=== PATIENT | male | born 1950 | race Caucasian/White ===

== ENCOUNTER 2021-11-03 09:02 | Outpatient (CLI) | payer MEDICARE, SELFPAY ==
--- NOTE | ~2021-11-03 | CT_ITS ---
EXAMINATION: CT abdomen pelvis w con DATE: 11/03/2021 10:16 INDICATION: Left abdominal pain. Nausea and diarrhea. TECHNIQUE: Computed tomography (CT) of the abdomen and pelvis was performed with 100 mL Omnipaque 350 intravenous contrast. Automated exposure control and iterative reconstruction technique were employe d. The dose-length product was 1604.12 mGy-cm. COMPARISON: None. FINDINGS: The visualized portions of the lung bases demonstrate mild atelectasis. No pleural effusion . The heart size is normal. There are coronary artery calcifications. No pericardial effusion. The li kathy, spleen, gallbladder, pancreas, and adrenal glands are normal. There are cysts in the kidneys deepthi suring up to 2.9 cm on the left. There is diverticulosis of the colon without evidence of diverticuli tis. The appendix is normal. There are no pathologically enlarged lymph nodes. There is no free intra peritoneal fluid. There is an umbilical hernia containing fat. There is severe lumbar spondylosis. IMPRESSION: 1. Umbilical hernia containing fat. Reviewed, dictated and finalized at location A.
[2021-11-03 09:49] LABS: Estimated Glomerular Filt Rate 55
== END 2021-11-03 09:03 | disposition home or self-care (01) ==
PROVIDERS: PCP Family Medicine; Visit Provider Nurse Practitioner Family
DX: R10.9 Unspecified abdominal pain (principal)
CPT/HCPCS: 74177; Q9967

== ENCOUNTER 2022-02-20 14:43 | Outpatient (CLI) | payer MEDICARE, SELFPAY ==
[2022-02-20 15:43] LABS: Hemoglobin A1C 6.3 % (<5.7)
== END 2022-02-20 14:44 | disposition home or self-care (01) ==
LOC: CHSLAB 14:45
PROVIDERS: PCP Family Medicine; Visit Provider Family Medicine
DX: E11.9 Type 2 diabetes mellitus without complications (principal)
CPT/HCPCS: 36415; 83036